=== PATIENT | male | born 1995 | race Two or more races ===

== ENCOUNTER 2017-03-30 04:20 | Emergency (ER) | payer OTHER ==
[~2017-03-30] VITALS: Ht 165.1 cm; Wt 58.1 kg
[2017-03-30] MEDS ORDERED: SELZENTRY300 MG (04:33)
[2017-03-30] MEDS ORDERED: TRUVADA 200 MG1 EACH (04:34)
== END 2017-03-30 14:25 | disposition home or self-care (01) ==
LOC: ER 04:20
DX: K52.9 Noninfective gastroenteritis and colitis, unspecified (principal)